=== PATIENT | female | born 1965 | race Hispanic/Latino ===

== ENCOUNTER 2021-02-15 07:39 | Day surgery (SDC) | payer BC ==
[2021-02-08 11:45] LABS: BASOPHILS % (AUTO) 0.9 % (0.0-5.0); EOSINOPHILS % (AUTO) 2.1 % (0.0-8.0); LYMPHOCYTES % (AUTO) 31.7 % (21.0-51.0); MEAN CORPUSCULAR HEMOGLOBIN 28.1 pg (27.0-33.0); MEAN CORPUSCULAR HGB CONC 32.8 g/dL (32.0-36.0); MEAN CORPUSCULAR VOLUME 85.7 fL (79-99); NEUTROPHILS % (AUTO) 60.8 % (40.0-77.0); PLATELET COUNT (AUTO) 337 K/uL (130-400); RED BLOOD CELL COUNT(AUTO) 5.37 MIL/uL (4.00-5.50); RED CELL DISTRIBUTION WIDTH 13.4 % (11.0-15.5); WHITE BLOOD COUNT (AUTO) 9.7 K/uL (4.8-10.8)
[2021-02-14 09:47] VITALS: BP 157/92
[2021-02-15] VITALS (13 sets, daily range): BP systolic 118–160; BP diastolic 69–88
[~2021-02-15] VITALS: Ht 157.5 cm; Wt 78.7 kg
[2021-02-15] MEDS: CEFAZOLIN SODIUM 1 GM VIAL IVP SCH ×2 (06:00→09:35)
[2021-02-15] MEDS: CALDOLOR 800MG+NS 250ML 250 ML IV SCH ×2 (06:00→09:45)
[~2021-02-15 07:39] MED LIST: ASPI-1197 PO; CALC-866 PO; HYDR12.54 PO; LACTATED RINGERS 1000ML 1,000 ML IV SCH; LEVO100T4 PO; POTA-9 PO; PREN-155 PO
[2021-02-15] MEDS ORDERED: SODIUM CHLORIDE 0.9% 1000ML 1,000 ML IV ONE (08:35)
[2021-02-15] MEDS ORDERED: FENTANYL CITRATE PF 50 MCG/1 ML 2ML VIAL ONE (09:12)
[2021-02-15] MEDS ORDERED: PROPOFOL 10 MG/ML 20ML VIAL IV ONE ×2 (09:12→09:40)
[2021-02-15] MEDS ORDERED: LIDOCAINE PF 2% 5ML ABBOJECT ONE (09:12)
[2021-02-15] MEDS ORDERED: MIDAZOLAM HCL 1 MG/ML 2ML VIAL ONE (09:17)
[2021-02-15] MEDS ORDERED: BUPIVACAINE/PF 0.25% 30ML VIAL IJ ONE (09:17)
[2021-02-15] MEDS ORDERED: ONDANSETRON HCL 4 MG/2 ML VIAL ONE (10:21)
[2021-02-15] MEDS ORDERED: ACETAMINOPHEN EXTRA STRENGTH 500 MG TABLET ONE (11:02)
[2021-02-15] MEDS ORDERED: ACETAMINOPHEN EXTRA STRENGTH 500 MG TABLET PO SCH (11:15)
== END 2021-02-15 11:30 | disposition home or self-care (01) ==
LOC: DAH 07:39
PROVIDERS: ATTEND Obstetrics & Gynecology
DX: N95.0 Postmenopausal bleeding (principal); Z20.822 Contact with and (suspected) exposure to COVID-19; N84.0 Polyp of corpus uteri; E11.9 Type 2 diabetes mellitus without complications; I10 Essential (primary) hypertension; Z88.2 Allergy status to sulfonamides; Z90.49 Acquired absence of other specified parts of digestive tract; Z98.891 History of uterine scar from previous surgery; E89.0 Postprocedural hypothyroidism; Z79.899 Other long term (current) drug therapy; Z98.890 Other specified postprocedural states
CPT/HCPCS: 36415 ×2; 58558; 82948; 85025; 86850 ×2; 86900 ×2; 86901 ×2; A4215; A4221; A4222; A4223; A4351; A4355; A4657; A4663; A6260; C9803; J0690; J1741; J2001; J2250; J2405; J2704 ×2; J3010; J3490; J7030 ×2; J7120; U0003

== ENCOUNTER → 2022-06-14 | Outpatient (CLI) | payer BC ==
[~2022-06-14] MED LIST changes: -LACTATED RINGERS 1000ML 1,000 ML IV SCH; +POTA-200 PO; -POTA-9 PO
== END | disposition home or self-care (01) ==
LOC: SHCH 10:25
PROVIDERS: ATTEND Student in an Organized Health Care Education/Training Program
DX: I08.8 Other rheumatic multiple valve diseases (principal)
CPT/HCPCS: 93306

== ENCOUNTER → 2024-05-17 | Outpatient (CLI) | payer BC ==
[~2024-05-17] MED LIST changes: +LIDOCAINE HCL 4% LTA SOL 4 ML VIAL TP ONE
== END | disposition home or self-care (01) ==
LOC: WHH 10:32
PROVIDERS: ATTEND Family Medicine
DX: T81.89XA Other complications of procedures, not elsewhere classified, initial encounter (principal); S31.109D Unspecified open wound of abdominal wall, unspecified quadrant without penetration into peritoneal cavity, subsequent encounter; E55.9 Vitamin D deficiency, unspecified; E03.9 Hypothyroidism, unspecified; I10 Essential (primary) hypertension; M17.11 Unilateral primary osteoarthritis, right knee; X58.XXXD Exposure to other specified factors, subsequent encounter; Y83.8 Other surgical procedures as the cause of abnormal reaction of the patient, or of later complication, without mention of misadventure at the time of the procedure; Y92.89 Other specified places as the place of occurrence of the external cause
CPT/HCPCS: 99215; A4450

== ENCOUNTER → 2024-05-24 | Outpatient (CLI) | payer BC | END | disposition home or self-care (01) | LOC: WHH 10:24 | PROVIDERS: ATTEND Family Medicine | DX: T81.89XD Other complications of procedures, not elsewhere classified, subsequent encounter (principal); S31.109D Unspecified open wound of abdominal wall, unspecified quadrant without penetration into peritoneal cavity, subsequent encounter; E55.9 Vitamin D deficiency, unspecified; E03.9 Hypothyroidism, unspecified; I10 Essential (primary) hypertension; M17.11 Unilateral primary osteoarthritis, right knee; Z79.899 Other long term (current) drug therapy; X58.XXXD Exposure to other specified factors, subsequent encounter; Y83.8 Other surgical procedures as the cause of abnormal reaction of the patient, or of later complication, without mention of misadventure at the time of the procedure | CPT/HCPCS: 99214; A6212 ==

== ENCOUNTER → 2024-06-21 | Outpatient (CLI) | payer BC ==
[~2024-06-21] MED LIST changes: -LIDOCAINE HCL 4% LTA SOL 4 ML VIAL TP ONE
== END | disposition home or self-care (01) ==
LOC: WHH 09:59
PROVIDERS: ATTEND Family Medicine
DX: T81.89XD Other complications of procedures, not elsewhere classified, subsequent encounter (principal); S31.109D Unspecified open wound of abdominal wall, unspecified quadrant without penetration into peritoneal cavity, subsequent encounter; E55.9 Vitamin D deficiency, unspecified; I10 Essential (primary) hypertension; E03.9 Hypothyroidism, unspecified; M17.11 Unilateral primary osteoarthritis, right knee; Z79.899 Other long term (current) drug therapy; X58.XXXD Exposure to other specified factors, subsequent encounter; Y83.8 Other surgical procedures as the cause of abnormal reaction of the patient, or of later complication, without mention of misadventure at the time of the procedure
CPT/HCPCS: 99214

== ENCOUNTER → 2025-01-20 | Outpatient (CLI) | payer BC ==
--- NOTE | 2025-01-20 16:30 | HMCIMG ---
CT ABDOMEN/PELVIS W/O CONTRAST HISTORY: Lower abdominal pain COMPARISON: None TECHNIQUE: Multiple sequential axial images of the abdomen and pelvis were obtained from the dome of the diaphragm through symphysis pubis. Patient was not given contrast through intravenous route. Oral contrast was not given. FINDINGS: No pleural effusion is seen bilaterally. There is no evidence of parenchymal disease or pulmonary nodule of the visualized lower lungs. Degenerative changes of the thoracolumbar spine are present. The heart is not enlarged. Liver is enlarged with fatty changes measuring 19 cm. Post cholecystectomy changes are seen. The liver, spleen, adrenal glands and pancreas are unremarkable. There is no evidence of hydronephrosis bilaterally. No evidence of renal stone is seen. Fecal material is seen in the colon. There are normal size retroperitoneal and mesenteric lymph nodes. No ascites is seen. No CT evidence of acute appendicitis is seen. Pelvic sidewalls are symmetric bilaterally. Bladder is poorly distended. IMPRESSION: 1. No acute findings. CT was performed with one or more following dose reduction techniques: automated exposure control, adjustment of the mA and kv according to patient's size, or use of a iterative reconstruction technique.
== END | disposition home or self-care (01) ==
LOC: RAH 15:08
PROVIDERS: ATTEND Internal Medicine Nephrology
DX: K76.89 Other specified diseases of liver (principal); R10.30 Lower abdominal pain, unspecified; M47.815 Spondylosis without myelopathy or radiculopathy, thoracolumbar region; Z90.49 Acquired absence of other specified parts of digestive tract
CPT/HCPCS: 74176